=== PATIENT | female | born 1965 | race Asian ===

== ENCOUNTER 2017-01-12 15:47 | Outpatient (CLI) | payer BC ==
[~2017-01-12 15:47] MED LIST: AMLO5TAB PO; HYZAAR1 TA2 PO; MOBIC7.5 M1 PO; TRIBENZO2 PO
== END 2017-01-12 17:00 | disposition home or self-care (01) ==
LOC: MAMMO 15:47
DX: Z12.31 Encounter for screening mammogram for malignant neoplasm of breast (principal)
CPT/HCPCS: G0202-TC

== ENCOUNTER 2017-03-27 16:18 | Emergency (ER) | payer OTHER, BC ==
[~2017-03-27] VITALS: Ht 162.6 cm; Wt 93.0 kg
[2017-03-27 19:04] VITALS: BP 173/82; TEMP 98.6
== END 2017-03-27 19:09 | disposition home or self-care (01) ==
LOC: ED 16:18
DX: S80.01XA Contusion of right knee, initial encounter (principal); S09.90XA Unspecified injury of head, initial encounter; M17.11 Unilateral primary osteoarthritis, right knee; W03.XXXA Other fall on same level due to collision with another person, initial encounter; Y92.211 Elementary school as the place of occurrence of the external cause
CPT/HCPCS: 99282

== ENCOUNTER 2017-05-18 15:32 | Outpatient (CLI) | payer OTHER, BC | END 2017-05-18 16:35 | disposition home or self-care (01) | LOC: RAD 15:32 | DX: M54.2 Cervicalgia (principal); M25.562 Pain in left knee ==

== ENCOUNTER 2017-06-30 12:53 | Outpatient (CLI) | payer BC | END 2017-06-30 13:55 | disposition home or self-care (01) | LOC: LABW 12:53 | DX: B35.1 Tinea unguium (principal) | CPT/HCPCS: 36415; 84450; 84460 ==

== ENCOUNTER 2018-01-21 09:50 | Outpatient (CLI) | payer BC ==
[2018-01-21 10:07] LABS: PLATELET COUNT 239 K/uL (152-353)
[2018-01-21 10:43] LABS: POTASSIUM 3.7 mmol/L (3.6-5.2)
== END 2018-01-21 22:29 | disposition home or self-care (01) ==
LOC: LABW 09:50
PROVIDERS: Internal Medicine
DX: Z00.00 Encounter for general adult medical examination without abnormal findings (principal); E78.00 Pure hypercholesterolemia, unspecified
CPT/HCPCS: 36415; 80053; 80061; 81000; 82306; 84443; 85027

== ENCOUNTER 2018-02-13 10:24 | Outpatient (CLI) | payer BC | END 2018-02-13 19:07 | disposition home or self-care (01) | LOC: MAMMO 10:24 | DX: Z12.31 Encounter for screening mammogram for malignant neoplasm of breast (principal); Z13.820 Encounter for screening for osteoporosis; N95.8 Other specified menopausal and perimenopausal disorders ==

== ENCOUNTER 2018-04-13 16:42 | Outpatient (CLI) | payer BC ==
[2018-04-13 17:02] LABS: PLATELET COUNT 250 K/uL (152-353)
== END 2018-04-13 23:27 | disposition home or self-care (01) ==
LOC: LABW 16:42
PROVIDERS: Orthopaedic Surgery
DX: M25.561 Pain in right knee (principal)
CPT/HCPCS: 36415; 85027; 85651; 86140

== ENCOUNTER 2018-06-16 09:18 | Outpatient (CLI) | payer BC ==
[2018-06-16 09:57] LABS: PLATELET COUNT 275 K/uL (152-353)
== END 2018-06-16 20:37 | disposition home or self-care (01) ==
LOC: LABW 09:18
PROVIDERS: Internal Medicine
DX: R21 Rash and other nonspecific skin eruption (principal)
CPT/HCPCS: 36415; 84443; 85027; 85651; 86039; 86140; 86162

== ENCOUNTER 2019-02-08 12:49 | Outpatient (CLI) | payer BC | END 2019-02-08 20:43 | disposition home or self-care (01) | LOC: RAD 12:49 | DX: M54.6 Pain in thoracic spine (principal) ==

== ENCOUNTER 2019-03-27 15:53 | Outpatient (CLI) | payer BC | END 2019-03-27 23:59 | LOC: MAMMO 15:53 | DX: Z12.31 Encounter for screening mammogram for malignant neoplasm of breast (principal) ==

== ENCOUNTER 2019-05-12 09:56 | Outpatient (CLI) | payer BC ==
[2019-05-12 10:12] LABS: PLATELET COUNT 233 K/uL (152-353)
[2019-05-12 10:21] LABS: POTASSIUM 3.8 mmol/L (3.6-5.2)
== END 2019-05-12 20:35 | disposition home or self-care (01) ==
LOC: LABW 09:56
PROVIDERS: Nurse Practitioner Family
DX: L43.9 Lichen planus, unspecified (principal); Z79.899 Other long term (current) drug therapy
CPT/HCPCS: 36415; 80053; 85027

== ENCOUNTER 2019-07-02 12:01 | Outpatient (CLI) | payer BC ==
[2019-07-02 12:31] LABS: PLATELET COUNT 223 K/uL (152-353)
[2019-07-02 13:10] LABS: POTASSIUM 3.7 mmol/L (3.6-5.2)
== END 2019-07-02 19:39 | disposition home or self-care (01) ==
LOC: LABW 12:01
PROVIDERS: Internal Medicine
DX: I10 Essential (primary) hypertension (principal)
CPT/HCPCS: 36415; 80053; 80061; 81000; 84443; 85027

== ENCOUNTER 2020-05-18 11:07 | Outpatient (CLI) | payer BC | END 2020-05-18 19:12 | disposition home or self-care (01) | LOC: MAMMO 11:07 | DX: Z12.31 Encounter for screening mammogram for malignant neoplasm of breast (principal); Z13.820 Encounter for screening for osteoporosis ==

== ENCOUNTER 2020-06-04 11:38 | Outpatient (CLI) | payer BC | END 2020-06-04 23:16 | disposition home or self-care (01) | LOC: US 11:38 | DX: R92.8 Other abnormal and inconclusive findings on diagnostic imaging of breast (principal) ==

== ENCOUNTER 2021-05-19 08:41 | Outpatient (CLI) | payer BC | END 2021-05-19 20:03 | disposition home or self-care (01) | LOC: MAMMO 08:41 | PROVIDERS: ATTEND Internal Medicine | DX: Z12.31 Encounter for screening mammogram for malignant neoplasm of breast (principal) ==

== ENCOUNTER 2021-07-21 16:12 | Outpatient (CLI) | payer BC | END 2021-07-21 20:24 | disposition home or self-care (01) | LOC: RAD 16:12 | PROVIDERS: ATTEND Internal Medicine | DX: M50.10 Cervical disc disorder with radiculopathy, unspecified cervical region (principal) ==

== ENCOUNTER 2022-03-23 15:57 | Outpatient (CLI) | payer BC | END 2022-03-23 20:04 | disposition home or self-care (01) | LOC: LABW 15:57 | PROVIDERS: ATTEND Podiatrist | DX: B35.1 Tinea unguium (principal) | CPT/HCPCS: 36415; 84450; 84460 ==

== ENCOUNTER 2022-05-23 09:40 | Outpatient (CLI) | payer BC | END 2022-05-23 20:43 | disposition home or self-care (01) | LOC: MAMMO 09:40 | PROVIDERS: ATTEND Obstetrics & Gynecology | DX: Z12.31 Encounter for screening mammogram for malignant neoplasm of breast (principal) ==

== ENCOUNTER 2022-07-07 08:00 | Outpatient (CLI) | payer BC | END 2022-07-07 18:59 | disposition home or self-care (01) | LOC: RAD 08:00 | PROVIDERS: ATTEND Internal Medicine | DX: Z78.0 Asymptomatic menopausal state (principal) ==

== ENCOUNTER 2022-11-17 08:55 | Outpatient (CLI) | payer BC | END 2022-11-17 20:42 | disposition home or self-care (01) | LOC: CT 08:55 | PROVIDERS: ATTEND Internal Medicine | DX: R10.9 Unspecified abdominal pain (principal) ==